=== PATIENT | male | born 1990 ===

== ENCOUNTER 2017-09-02 12:24 | Emergency (ER) | payer SELFPAY ==
[2017-09-02 12:27] VITALS: BMI 23.8
[2017-09-02 12:28] VITALS: RESP 18; O2SAT 100
[2017-09-02] MEDS ORDERED: Lactated Ringer's 1,000 ML IV ONE (13:19)
--- NOTE | 2017-09-02 13:19 | C.PDOC ---
History Of Present Illness 27 y/o male presents to the ER for evaluation of a myriad of symptoms. Patient reports that has been feeling weak and tired for the past 2 months. Patient julianne reports that he has trouble extending his fingers in the morning which requires he use the opposite hand to help with extending the fingers. Patient also reports that he has body sweats and mild headaches. 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 Time Seen by Provider: 09/02/17 13:06 Chief Complaint (Nursing): Headache Past Medical History Reviewed: Historical Data, Nursing Documentation, Vital Signs Vital Signs: Last Vital Signs Temp 98.1 F 09/02/17 16:00 Pulse 84 09/02/17 16:00 Resp 18 09/02/17 16:00 BP 145/85 09/02/17 16:00 Pulse Ox 100 09/03/17 00:46 Family History: States: No Known Family Hx - Social History Hx Tobacco Use: Yes Hx Alcohol Use: No Hx Substance Use: Yes - Immunization History Hx Tetanus Toxoid Vaccination: No Hx Influenza Vaccination: No Hx Pneumococcal Vaccination: No Review Of Systems Except As Marked, All Systems Reviewed And Found Negative. Constitutional: Positive for: Sweats. Negative for: Fever, Chills Neurological: Positive for: Weakness, Headache. Negative for: Numbness Physical Exam - Physical Exam Appears: Non-toxic, No Acute Distress, Other (thin male) Skin: Normal Color, Warm, Dry Head: Atraumatic, Normacephalic Eye(s): bilateral: Normal Inspection Throat: Normal Lymphatic: No Adenopathy (no cervical or clavicular adenopathy) Chest: Symmetrical Cardiovascular: Rhythm Regular Respiratory: Normal Breath Sounds, No Accessory Muscle Use Extremity: Bilateral: Atraumatic, Bony Point Tenderness Neurological/Psych: Oriented x3, Normal Speech, Normal Cognition, Other (normal upper extremities/hands. no flex/ext abnormalities of b/l hands.) ED Course And Treatment - Laboratory Results Result Diagrams: 09/02/17 14:18 09/02/17 14:18 Lab Interpretation: Normal (d-dimer, trop, UA neg.) ECG: Interpreted By Wy ECG Rhythm: Sinus Bradycardia ECG Interpretation: Normal Rate From EC O2 Sat by Pulse Oximetry: 100 (RA) Pulse Ox Interpretation: Normal - Radiology CXR: Interpreted by Me CXR Interpretation: Yes: No Acute Disease Progress Note: IVF, toradol IV Reevaluation Time: 14:46 Reassessment Condition: Improved Medical Decision Making Medical Decision Making: Plan: --Labs --Urinalysis --ECG --Toradol 30 mg IVP labs and w/u neg. 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 overall normal w/u and no sig findings to explain pt's myriad of complaints without physical nor physical findings. Disposition Doctor Will See Patient In The: Office Counseled Patient/Family Regarding: Studies Performed, Diagnosis - Disposition Referrals: [facility] [Outside] [facility] [Outside] Disposition: HOME/ ROUTINE Disposition Time: 14:50 Condition: GOOD Additional Instructions: evaluacion' normal hoy examenes de inder/orina/faye normales Sigue [place] trabajo jennifer normal Ibuprofeno 400-600 mg cada 6 horas jennifer necessario. Sigue en la [facility] (gratis) jennifer necessario. Instructions: Weakness (ED) Forms: [employer] (Kyrgyz) Print Language: UKRAINIAN - Clinical Impression Clinical Impression: Lethargy - Scribe Statement The provider has reviewed the documentation as recorded by the Jeremiahibhaydee Lala Provider Attestation: All medical record entries made by the Scribe were at my direction and personally dictated by me. I have reviewed the chart and agree that the record accurately reflects my personal performance of the history, physical exam, medical decision making, and the department course for this patient. I have also personally directed, reviewed, and agree with the discharge instructions and disposition.
--- NOTE | 2017-09-02 13:45 | RAD ---
HISTORY: SOB COMPARISON: 03/31/2015 TECHNIQUE: Chest PA and lateral FINDINGS: LUNGS: No active pulmonary disease. PLEURA: No significant pleural effusion identified. No pneumothorax apparent. CARDIOVASCULAR: Normal. OSSEOUS STRUCTURES: No significant abnormalities. VISUALIZED UPPER ABDOMEN: Normal. OTHER FINDINGS: None. IMPRESSION: No active disease. No interval pathology noted
[2017-09-02] MEDS ORDERED: Sodium Chloride 0.9% 1,000 ML IV ONE (14:17)
[2017-09-02 14:28] LABS: BASO % 0.7 % (0.0-2.0); EOS # 0.1 K/uL (0.0-0.7); EOS % 1.3 % (0.0-4.0); HEMATOCRIT 46.7 % (35.0-51.0); LYMPH # 1.5 K/uL (1.0-4.3); LYMPH % 27.1 % (20.0-40.0); MEAN CELL VOLUME 90.6 fL (80.0-94.0); MEAN CORPUSCULAR HEMOGLOBIN 31.3 pg (27.0-31.0); MEAN CORPUSCULAR HGB CONC 34.5 g/dL (33.0-37.0); MEAN PLATELET VOLUME 8.9 fL (7.2-11.7); MONO # 0.4 K/uL (0.0-0.8); MONO % 6.5 % (0.0-10.0); RED CELL DISTRIBUTION WIDTH 13.6 % (11.5-14.5); WHITE BLOOD COUNT 5.5 K/uL (4.8-10.8)
[2017-09-02 14:32] LABS: RBC URINE 1 /hpf (0-3); URINE BILIRUBIN NEGATIVE (NEGATIVE); URINE BLOOD NEGATIVE (NEGATIVE); URINE COLOR Yellow (YELLOW); URINE GLUCOSE (UA) NORMAL (Normal); URINE KETONE NEGATIVE (NEGATIVE); URINE LEUKOCYTE ESTERASE NEG Leu/uL (Negative); URINE PROTEIN NEGATIVE (NEGATIVE); URINE UROBILINOGEN NORMAL mg/dL (0.2-1.0)
[2017-09-02 14:41] LABS: ALB/GLOB RATIO 1.4 (1.0-2.1); ALCOHOL SERUM < 10 mg/dl (0-10); ALKALINE PHOSPHATASE 72 U/L (38-126); ALT/SGPT 21 U/L (21-72); AST/SGOT 25 U/L (17-59); BILIRUBIN,TOTAL 0.4 mg/dL (0.2-1.3); BLOOD UREA NITROGEN 18 mg/dL (9-20); CALCIUM 9.1 mg/dl (8.6-10.4); CARBON DIOXIDE 31 mmol/L (22-30); CHLORIDE 95 mmol/L (98-107); GFR AFRICAN-AMERICAN > 60; GLUCOSE,RANDOM 82 mg/dL (75-110); POTASSIUM 3.9 mmol/L (3.6-5.2); SODIUM 137 mmol/L (132-148); TOTAL PROTEIN 7.7 g/dL (6.3-8.3)
[2017-09-02 16:07] VITALS: BP 145/85; PULSE 84; TEMP 98.1
--- NOTE | 2017-09-04 12:56 | CARD ---
APPROVED REPORT EKG Measurement Heart [id number] [place] [id number] <Conclusion> Sinus bradycardia Otherwise normal ECG
== END 2017-09-02 16:00 | disposition home or self-care (01) ==
LOC: C.ER 12:24
DX: R53.83 Other fatigue (principal); Z87.891 Personal history of nicotine dependence
CPT/HCPCS: 71020; 80053; 81001; 84484; 85025; 85378; 93005; 96361; 96374; 99284; G0480; J1885; J7040